=== PATIENT | female | born 1985 | race Caucasian/White ===

== ENCOUNTER 2016-06-04 21:31 | Emergency (ER) ==
[2016-06-04 22:01] LABS: MANUAL DIFF NEEDED? NO
[2016-06-04 22:03] LABS: BASO% 0.2 % (0.0-0.8); EOS# 0.13 X1000 (0.0-0.7); EOS% 1.1 % (0.0-10.0); HEMATOCRIT 35.1 % (37.0-47.0); HEMOGLOBIN 12.5 g/dL (12.0-16.0); IMM GRAN# 0.03 X1000 (0.0-0.04); IMM GRAN% 0.3 % (0.0-0.5); LYMPH# 3.24 X1000 (1.2-3.4); LYMPH% 27.1 % (20.5-51.1); MCH 29.6 PG (27-31); MCHC 35.6 g/dL (33-37); MCV 83.2 FL (81-99); MONO# 0.86 X1000 (0.11-0.59); MONO% 7.2 % (1.7-9.3); NEUT% 64.1 % (42.2-75.2); PLT 235 X1000 (130-400); RBC 4.22 XMIL (4.2-5.4)
[2016-06-04 22:08] LABS: URINE CULTURE PL NEEDED? NO; URINE SOURCE CLEAN CATCH
[2016-06-04 22:25] LABS: AGAP 11; ALBUMIN 4.4 g/dL (3.5-5.0); ALKALINE PHOSPHATASE 44 U/L (32-104); BUN 8 mg/dL (8-22); CHLORIDE 92 mmol/L (98-107); COSMO 250; GOT 11 U/L (10-30); GPT 7 U/L (10-36); POTASSIUM 3.8 mmol/L (3.5-5.1); TCO2 22 mmol/L (25-35); TOTAL PROTEIN 7.1 g/dL (6.3-8.3)
[2016-06-04 22:28] LABS: BILIRUBIN URINE NEGATIVE (NEGATIVE); BLOOD URINE NEGATIVE (NEGATIVE); CLARITY CLEAR (CLEAR); COLOR YELLOW; GLUCOSE URINE NEGATIVE (NEGATIVE); LEUKOCYTES URINE NEGATIVE (NEGATIVE); NITRITE URINE NEGATIVE (NEGATIVE); PROTEIN URINE NEGATIVE (NEGATIVE); SP GRAVITY URINE 1.005; UROBILINOGEN URINE NORMAL
[2016-06-04 22:42] LABS: URINE EPITHELIAL CELLS <10 /HPF (<10); URINE RBC <10 /HPF (<10); URINE WBC <10 /HPF (<10)
--- NOTE | 2016-06-04 22:59 | PROVIDER DOCUMENTATION ---
HPI-Female /OB/Breast - General Source: reports: patient - History of Present Illness-Female /OB Does patient report she is ?: Yes (7 weeks ) Radiation: reports: none Quality of Pain: reports: none Severity in ED: reports: mild Onset/Duration: reports: this afternoon Timing: reports: still present Context/Activities at Onset: reports: none Related Symptoms: reports: vaginal bleeding Associated Symptoms: reports: denies symptoms Similar Symptoms Previously?: No Recently seen or treated by another doctor?: No - LMP/ History Menstrual Status: currently <Courtney Palmer - Last Filed: 06/04/16 22:53> <Theodore Connros - Last Filed: 06/05/16 00:11> - General Chief Complaint: Female Stated Complaint: 7 WKS PREG-BLEEDING Time Seen by Provider: 06/04/16 22:48 Allergies/Adverse Reactions: Patient Allergies Allergy/AdvReac Type Severity Reaction Status Date / Time No Known Allergies Allergy Verified 07/27/14 02:12 Home Medications: Home Medication List Medication Instructions Recorded Confirmed Last Taken Type No Home Medications 06/04/16 06/04/16 Unknown History - History of Present Illness-Female /OB Nature of Presenting Problem: 31 year old F presents to the ED with a cc of vaginal bleeding. PT states that she is 7 weeks . Pt denies ABD pain, nausea, or vomiting. (Courtney Palmer) Review of Systems - Adult - REVIEW OF SYSTEMS - ADULT Constitutional: denies: chills, fever Eyes: reports: no symptoms reported Ears, Nose, Mouth & Throat: reports: no symptoms reported Cardiovascular: reports: no symptoms reported Respiratory: reports: no symptoms reported Gastrointestinal: denies: abdominal pain, nausea, vomiting Genitourinary: denies: dysuria, hematuria Musculoskeletal: reports: no symptoms reported Integumentary: reports: no symptoms reported Neurological: reports: no symptoms reported Psychiatric: reports: no symptoms reported Endocrine: reports: no symptoms reported Hematologic/Lymphatic: reports: no symptoms reported Allergic/Immunologic: reports: no symptoms reported All Other Systems: Reviewed and Negative <Courtney Palmer - Last Filed: 06/04/16 22:53> Past History - Adult - PAST MEDICAL HISTORY-ADULT Review of Records: reports: Nursing Assessment Review, Medications Reviewed Major Childhood Illnesses: reports: denies history Cardiovascular: reports: HTN Respiratory: reports: denies history Gastrointestinal: reports: denies history Obstetrical/Gynecological: reports: denies history Genitourinary: reports: denies history Musculoskeletal: reports: denies history Neurological: reports: denies history Endocrine/Immune: reports: denies history Other Conditions: reports: denies history - PRIOR SURGERIES/PROCEDURES Surgical/Procedure History: reports: - IMMUNIZATION STATUS Childhood Immunizations: See Nurse Assessment Flu Vaccine: See Nurse Assessment - SOCIAL HISTORY Smoking: non-smoker Substance Use: none/never Alcohol Use Frequency: never <Courtney Palmer - Last Filed: 06/04/16 22:53> Physical Exam-General - PHYSICAL EXAM-ADULT Initial Vital Signs Reviewed: Yes - CONSTITUTIONAL General Appearance: appears well, alert, no apparent distress - RESPIRATORY Respiratory: chest non-tender, lungs clear, normal breath sounds - CARDIOVASCULAR Cardiovascular: normal peripheral pulses, regular rate, rhythm, no edema - SKIN Integumentary: normal color, normal turgor, warm/dry - PSYCHIATRIC Psych/Mental Status: normal mood/affect, normal thought content, normal thought process, oriented x 3 <Courtney Palmer - Last Filed: 06/04/16 22:53> Progress - CONSULTS/PCP/HOSPITALIST Notification #1 *Consult/PCP/Hospitalist*: Dr. Costa Time Discussed: 22:53 Consult Disposition: F/U in office (Follow up in office. repeat sodium) <Courtney Palmer - Last Filed: 06/04/16 22:53> Departure <Courtney Palmer - Last Filed: 06/04/16 22:53> - Departure Time of Disposition Order: 00:10 Certified Medical Emergency: Emergent <Theodore Connors - Last Filed: 06/05/16 00:11> - Departure DIAGNOSIS: Chemical , Vaginal bleeding before 22 weeks gestation, Hyponatremia Disposition: HOME 01 Condition: Stable Additional Instructions: Call office and let them know that you were a pt in the ED. They will bump your appointment up for a ultrasound. ED Follow Up Instructions: You have been treated by a care provider in the Emergency Department. These instructions are being provided to you so you can have an understanding of how to care for yourself upon discharge. Upon discharge from the Emergency Department, you are responsible for making arrangements for follow-up care by a physician of your choice. Take all prescribed medications as directed. Return to the Emergency Department immediately for any new or worsening symptoms. You may call the Physician Referral phone number at [phone] to obtain a list of Physicians who are taking new patients. Referrals: Mukul Swift MD [Primary Care Provider] - Renan Sanchez MD [STAFF PHYSICIAN] - Call for Appoint. 1-2days (Call office and let them know that you were a pt in the ED. They will bump your appointment up for a ultrasound. ) Attestation - Scribe Verification/Attestation Scribe:: Courtney Palmer Acting as Scribe for:: Theodore Connors Scribe documention review:: This chart was documented by a scribe and accurately reflects the service the provider performed and the decisions made by the provider. <Courtney Palmer - Last Filed: 06/04/16 22:53> Physician Attestation - Physician Attestation I, the provider, attest to the following statement:: Theodore Connors Physician documentation Attestation:: This documentation recorded by the scribe accurately reflects the service I personally performed and the decisions made by me. <Courtney Palmer - Last Filed: 06/04/16 22:53>
[2016-06-04 23:09] LABS: SODIUM 125 mmol/L (136-145)
[2016-06-05 00:21] VITALS: BP 118/69
== END 2016-06-05 00:23 | disposition home or self-care (01) ==
LOC: P.ED 21:31
DX: O02.81 Inappropriate change in quantitative human chorionic gonadotropin (hCG) in early pregnancy (principal); O26.891 Other specified pregnancy related conditions, first trimester; Z3A.01 Less than 8 weeks gestation of pregnancy; E87.1 Hypo-osmolality and hyponatremia
CPT/HCPCS: 80053; 81001; 84295; 84702; 85025; 86900; 86901; 99283